=== PATIENT | female | born 2000 | race Hispanic/Latino ===

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

== ENCOUNTER 2021-08-28 04:19 | Emergency (ER) | payer OTHER ==
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
[2021-08-28 05:01] LABS: Urine Blood Trace-intact (Negative); Urine Glucose Negative (Negative); Urine Protein 2+ (Negative); Urine Specific Gravity >=1.030 (1.005-1.030)
[2021-08-28 05:03] LABS: Urine Specific Gravity/Preg >1.030 (1.005-1.030)
[2021-08-28] MEDS ORDERED: ONDANSETRON 4 MG/2 ML VIAL ONE (05:05)
[2021-08-28] MEDS ORDERED: NA CHLORIDE 0.9% 1,000 ML ONE (05:06)
[2021-08-28 05:14] LABS: Absolute Lymphocytes (CBC) 1.9 K/uL (0.7-4.9); Hematocrit 37.8 % (36.0-45.0); Lymphocytes % 19.7 % (15.3-44.8); MPV 9.4 fL (7.6-11.3); RBC Red Blood Cell Count 4.56 M/uL (3.86-4.86)
[2021-08-28 05:28] LABS: ALT/SGPT 42 U/L (12-78); AST/SGOT 56 U/L (15-37); Albumin 3.6 g/dL (3.4-5.0); Alkaline Phosphatase 77 U/L (45-117); BUN Blood Urea Nitrogen 10 mg/dL (7-18); Bicarbonate 23 mmol/L (21-32); Bilirubin Direct < 0.1 mg/dL (0-0.2); Bilirubin Total 0.3 mg/dL (0.2-1.0); Glucose Level 103 mg/dL (74-106); Lipase 87 U/L (73-393); Potassium 3.2 mmol/L (3.5-5.1); Protein, Total 8.2 g/dL (6.4-8.2); Sodium Level 139 mmol/L (136-145)
[2021-08-28] MEDS ORDERED: POTASSIUM CL SA 10 MEQ TAB PO ONE (05:54)
[2021-08-28 06:00] LABS: Urine Bacteria 20-50 /HPF (<20); Urine RBC <5 /HPF (NONE SEEN)
[2021-08-28 06:01] LABS: Calcium Oxalate Crystals- Ur MANY (NONE SEEN); Urine Amorphous Sediment 1+ /HPF (NONE SEEN); Urine Mucus 3+ /HPF (NONE SEEN)
[2021-08-28 06:04] LABS: SARS-COV-2 RT PCR NEGATIVE (NEGATIVE)
[2021-08-28] MEDS ORDERED: CIPROFLOXACIN HCL 500 MG TAB ONE (06:13)
--- NOTE | 2021-08-28 06:13 | EDPHYS ---
Physician Documentation [facility] Name: Michelle De Souza Age: 21 yrs Sex: Female : 2000 Arrival Date: 08/28/2021 Time: 04:23 Bed 13 Private MD: ED Physician Jonatan Lind HPI: 08/28 04:46 This 21 yrs old Female presents to ER via Ambulatory with complaints of pkl Diarrhea, Nausea, Breathing Difficulty. 04:46 Onset: The symptoms/episode began/occurred 4 day(s) ago. 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 - Social history:: Smoking status: Patient denies any tobacco usage or history of. ROS: 04:46 Eyes: Negative for injury, pain, redness, and discharge, ENT: Negative for injury, pkl pain, and discharge, Neck: Negative for injury, pain, and swelling, Cardiovascular: Negative for chest pain, palpitations, and edema, Respiratory: Negative for shortness of breath, cough, wheezing, and pleuritic chest pain. 04:46 Abdomen/GI: Positive for nausea, vomiting, and diarrhea. 04:46 Back: Negative for acute changes. 04:46 : Negative for urinary symptoms. 04:46 MS/extremity: Negative for acute changes. 04:46 Skin: Negative for rash. 04:46 Neuro: Negative for altered mental status, loss of consciousness. Exam: 04:46 Head/Face: Normocephalic, atraumatic. Eyes: Pupils equal round and reactive to light, pkl extra-ocular motions intact. Lids and lashes normal. Conjunctiva and sclera are non-icteric and not injected. Cornea within normal limits. Periorbital areas with no swelling, redness, or edema. ENT: Nares patent. No nasal discharge, no septal abnormalities noted. Tympanic membranes are normal and external auditory canals are clear. Oropharynx with no redness, swelling, or masses, exudates, or evidence of obstruction, uvula midline. Mucous membranes moist. Neck: Trachea midline, no thyromegaly or masses palpated, and no cervical lymphadenopathy. Supple, full range of motion without nuchal rigidity, or vertebral point tenderness. No Meningismus. Chest/axilla: Normal chest wall appearance and motion. Nontender with no deformity. No lesions are appreciated. Cardiovascular: Regular rate and rhythm with a normal S1 and S2. No gallops, murmurs, or rubs. Normal PMI, no JVD. No pulse deficits. Respiratory: Lungs have equal breath sounds bilaterally, clear to auscultation and percussion. No rales, rhonchi or wheezes noted. No increased work of breathing, no retractions or nasal flaring. 04:46 Abdomen/GI: Bowel sounds: active, Palpation: abdomen is soft and non-tender, in all quadrants. 04:46 Back: Exam negative for acute changes. 04:46 : Exam negative for acute changes. 04:46 Musculoskeletal/extremity: Exam is negative for acute changes. 04:46 Skin: Exam negative for rash. 04:46 Neuro: Orientation: is normal, Mentation: is normal, Cranial nerves: grossly normal, Motor: is normal. Vital Signs: 04:31 BP 109 / 63; Pulse 83; Resp 18; Temp 97.6(O); Pulse Ox 100% on R/A; Weight 72.12 kg; vc1 Height 5 ft. 4 in. (162.56 cm); Pain 0/10; 05:57 BP 100 / 64; Pulse 78; Resp 18; Pulse Ox 100% ; Pain 0/10; vc1 04:31 Body Mass Index 27.29 (72.12 kg, 162.56 cm) vc1 MDM: 04:24 Patient medically screened. pkl 06:10 Data reviewed: vital signs, nurses notes, lab test result(s). ED course: Patient pkl feeling better. Discussed lab results with patient. To follow up with PCP in 2 to 3 days. Patient understood instructions. 08/28 04:43 Order name: Basic Metabolic Panel; Complete Time: 05:46 pkl 08/28 04:43 Order name: CBC with Diff; Complete Time: 05:46 pkl 08/28 04:43 Order name: Hepatic Function; Complete Time: 05:46 pkl 08/28 04:43 Order name: Lipase; Complete Time: 05:46 pkl 08/28 04:46 Order name: COVID-19/FLU A+B (Document "Date of Onset" if Symptomatic): nausea, pkl diarrhea; Complete Time: 06:05 08/28 05:00 Order name: Urine Dipstick-Ancillary; Complete Time: 05:19 EDMS 08/28 05:01 Order name: Urine --Ancillary (enter results); Complete Time: 05:19 mw2 08/28 05:21 Order name: Urine Microscopic Only; Complete Time: 06:02 pkl 08/28 05:21 Order name: Urine Culture pkl 08/28 04:43 Order name: IV Saline Lock; Complete Time: 05:09 pkl 08/28 04:43 Order name: Labs collected and sent; Complete Time: 05:09 pkl 08/28 04:44 Order name: Urine Dipstick-Ancillary (obtain specimen); Complete Time: 05:09 pkl Administered Medications: 05:09 Drug: NS 0.9% 1000 ml Route: IV; Rate: 1000 ml; Site: right antecubital; vc1 06:09 Follow up: Response: No adverse reaction; Marked relief of symptoms; IV Status: vc1 Completed infusion; IV Intake: 1000ml 05:09 Drug: Zofran (Ondansetron) 4 mg Route: IVP; Site: right antecubital; vc1 05:39 Follow up: Response: No adverse reaction vc1 05:56 Drug: K-Dur (potassium chloride) 40 mEq Route: PO; vc1 06:07 Follow up: Response: No adverse reaction vc1 06:13 Drug: LoMOTIL (diphenoxylate-atropine) 2 tabs Route: PO; vc1 06:20 Follow up: Response: No adverse reaction vc1 06:14 Drug: Cipro (ciprofloxacin) 500 mg Route: PO; vc1 06:20 Follow up: Response: No adverse reaction vc1 Disposition Summary: 08/28/21 06:13 Discharge Ordered Location: Home pkl Problem: new pkl Symptoms: have improved pkl Condition: Stable pkl Diagnosis - Gastroenteritis pkl Followup: pkl - With: Private Physician - When: 2 - 3 days - Reason: Re-evaluation by your physician Discharge Instructions: - Discharge Summary Sheet pkl Forms: - Medication Reconciliation Form pkl - Thank You Letter pkl - Antibiotic Education pkl - Prescription Opioid Use pkl Prescriptions: - Cipro 500 mg Oral Tablet - take 1 tablet by ORAL route every 12 hours for 5 days; 10 tablet; Refills: 0, pkl Product Selection Permitted Signatures: Dispatcher [employer] Jonatan Fagan MD MD pkl Queenie Lange RN RN vc1
--- NOTE | 2021-08-28 06:13 | ER ---
Nurse's Notes [facility] Name: Michelle De Souza Age: 21 yrs Sex: Female : 2000 Arrival Date: 08/28/2021 Time: 04:23 Bed 13 Private MD: Diagnosis: Gastroenteritis Presentation: 08/28 04:31 Chief complaint: Patient states: "I woke up feeling really weak and nauseous, I ended vc1 up having diarrhea four times, then I felt like I was going to fall out". Coronavirus screen: Vaccine status: Patient reports receiving the 1st dose of the Covid vaccine. Pfizer diarrhea, nausea, shortness of breath, Client presents with at least one sign or symptom that may indicate coronavirus-19. Standard/surgical mask placed on the client. Provider contacted for isolation considerations. Ebola Screen: No symptoms or risks identified at this time. Initial Sepsis Screen: Does the patient meet any 2 criteria? No. Patient's initial sepsis screen is negative. Does the patient have a suspected source of infection? No. Patient's initial sepsis screen is negative. Risk Assessment: Do you want to hurt yourself or someone else? Patient reports no desire to harm self or others. Onset of symptoms was August 28, 2021 at 03:30. 04:31 Method Of Arrival: Ambulatory vc1 04:31 Acuity: RADHA 4 vc1 Triage Assessment: 04:34 General: Appears in no apparent distress. comfortable, Behavior is calm, cooperative, vc1 appropriate for age. Pain: Denies pain. Neuro: Reports "feeling like I was going to fall out". Cardiovascular: No deficits noted. Respiratory: Reports shortness of breath. GI: Reports diarrhea, nausea, vomiting. 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 - Social history:: Smoking status: Patient denies any tobacco usage or history of. Screenin:36 Abuse screen: Denies threats or abuse. Nutritional screening: No deficits noted. vc1 Tuberculosis screening: No symptoms or risk factors identified. Fall Risk None identified. Assessment: 05:12 General: Appears in no apparent distress. comfortable, ill, Behavior is calm, vc1 cooperative, appropriate for age. Pain: Denies pain. Neuro: No deficits noted. Cardiovascular: No deficits noted. Respiratory: Reports shortness of breath. GI: Abdomen is round non-distended, Bowel sounds present X 4 quads. hyperactive in right lower quadrant Abd is soft and non tender X 4 quads. : Urine is clear. 05:50 Reassessment: Patient appears in no apparent distress at this time. Patient is alert, vc1 oriented x 3, equal unlabored respirations, skin warm/dry/pink. Patient denies pain at this time. 06:20 Reassessment: Patient appears in no apparent distress at this time. Patient and/or vc1 family updated on plan of care and expected duration. Pain level reassessed. Patient is alert, oriented x 3, equal unlabored respirations, skin warm/dry/pink. Patient denies pain at this time. Patient states feeling better. Patient states symptoms have improved. Vital Signs: 04:31 BP 109 / 63; Pulse 83; Resp 18; Temp 97.6(O); Pulse Ox 100% on R/A; Weight 72.12 kg; vc1 Height 5 ft. 4 in. (162.56 cm); Pain 0/10; 05:57 BP 100 / 64; Pulse 78; Resp 18; Pulse Ox 100% ; Pain 0/10; vc1 04:31 Body Mass Index 27.29 (72.12 kg, 162.56 cm) vc1 ED Course: 04:23 Patient arrived in ED. es 04:24 Jonatan Lind MD is Attending Physician. pkl 04:31 Queenie Lange RN is Primary Nurse. vc1 04:34 Triage completed. vc1 04:34 Arm band placed on right wrist. vc1 04:36 Patient has correct armband on for positive identification. Bed in low position. Call vc1 light in reach. Side rails up X2. 04:37 Pulse ox on. NIBP on. vc1 05:09 Basic Metabolic Panel Sent. vc1 05:09 CBC with Diff Sent. vc1 05:09 Hepatic Function Sent. vc1 05:09 Lipase Sent. vc1 05:39 COVID-19/FLU A+B (Document "Date of Onset" if Symptomatic): nausea, diarrhea Sent. vc1 05:39 Urine Microscopic Only Sent. vc1 05:39 Urine Culture Sent. vc1 05:56 Urine Culture Sent. vc1 05:56 Urine Microscopic Only Sent. vc1 06:20 No provider procedures requiring assistance completed. IV discontinued, intact, vc1 bleeding controlled, No redness/swelling at site. Pressure dressing applied. Administered Medications: 05:09 Drug: NS 0.9% 1000 ml Route: IV; Rate: 1000 ml; Site: right antecubital; vc1 06:09 Follow up: Response: No adverse reaction; Marked relief of symptoms; IV Status: vc1 Completed infusion; IV Intake: 1000ml 05:09 Drug: Zofran (Ondansetron) 4 mg Route: IVP; Site: right antecubital; vc1 05:39 Follow up: Response: No adverse reaction vc1 05:56 Drug: K-Dur (potassium chloride) 40 mEq Route: PO; vc1 06:07 Follow up: Response: No adverse reaction vc1 06:13 Drug: LoMOTIL (diphenoxylate-atropine) 2 tabs Route: PO; vc1 06:20 Follow up: Response: No adverse reaction vc1 06:14 Drug: Cipro (ciprofloxacin) 500 mg Route: PO; vc1 06:20 Follow up: Response: No adverse reaction vc1 Intake: 06:09 IV: 1000ml; Total: 1000ml. vc1 Outcome: 06:13 Discharge ordered by . pkkassie 06:20 Discharged to home ambulatory. vc1 06:20 Condition: good 06:20 Discharge instructions given to patient, Instructed on discharge instructions, follow up and referral plans. medication usage, Demonstrated understanding of instructions, follow-up care, medications, Prescriptions given X 1. 06:20 Patient left the ED. vc1 Signatures: Jonatan Lind MD MD pkl Salyer, Edna es Calcote, Vanessa RN RN vc1
[2021-08-28] MEDS ORDERED: DIPHENOX/ATROP SULF 1 TAB PO ONE (06:14)
[2021-08-28 06:25] VITALS: TEMP 97.6; O2SAT 100
[2021-08-28 06:27] VITALS: BP 100/64
== END 2021-08-28 06:20 | disposition home or self-care (01) ==
LOC: ER 04:19
DX: K52.9 Noninfective gastroenteritis and colitis, unspecified (principal); Z20.822 Contact with and (suspected) exposure to COVID-19
CPT/HCPCS: 96361; 87088; 85025; 87086; 80048; 36415; 81025; 80076; 83690; 0240U; 96374; 99284; J7030; J2405; 81003; 81015